=== PATIENT | male | born 1955 | race Caucasian/White ===

== ENCOUNTER 2017-05-20 09:56 | Emergency (ER) | payer OTHER ==
[2017-05-20] MEDS ORDERED: NACL 0.9% 1000 ML 1,000 ML IV ONE (10:28)
[2017-05-20] MEDS ORDERED: ZOFRAN IV ONE ×2 (10:53→13:53)
[2017-05-20] MEDS ORDERED: MORPHINE IV ONE ×2 (10:53→11:59)
[2017-05-20] MEDS ORDERED: TORADOL IV ONE (10:53)
--- NOTE | 2017-05-20 10:56 | Emergency Department Report ---
ED Abdominal Pain HPI - General Chief Complaint: Abdominal Pain Stated Complaint: SEVERE LEFT SIDE PAIN, ABDOMINAL PAIN Time Seen by Provider: 05/20/17 10:48 Source: patient, family Mode of arrival: Wheelchair Limitations: Physical Limitation - History of Present Illness Initial Comments: 62 years old history of COPD coming today with left flank pain started all of a sudden and radiated down to his left groin. Denied any similar symptoms. Associated with nausea but no vomiting, no fever no diarrhea. Denied any urinary symptoms. MD Complaint: abdominal pain, flank pain -: Sudden, This morning Location: L flank Radiation: suprapubic Severity: severe Severity scale (0 -10): 10 Quality: stabbing Consistency: intermittent - Related Data Allergies Allergy/AdvReac Type Severity Reaction Status Date / Time amoxicillin Allergy Unknown Verified 05/20/17 10:21 conch Allergy Unknown Uncoded 05/20/17 10:21 ED Review of Systems ROS: Stated complaint: SEVERE LEFT SIDE PAIN, ABDOMINAL PAIN Other details as noted in HPI Comment: All other systems reviewed and negative Constitutional: denies: chills, fever Respiratory: denies: cough, orthopnea, shortness of breath Cardiovascular: denies: chest pain, palpitations, dyspnea on exertion Gastrointestinal: abdominal pain, nausea. denies: vomiting, diarrhea, constipation, hematemesis, melena, hematochezia Genitourinary: denies: urgency, dysuria, frequency, hematuria, discharge, testicular pain, testicular mass Neurological: denies: headache ED Past Medical Hx - Past Medical History Previous Medical History?: No Additional medical history: Bronchitis - Social History Smoking Status: Current Every Day Smoker ED Physical Exam - General Limitations: Physical Limitation General appearance: alert, in distress (secondary to pain) - Head Head exam: Present: normocephalic - ENT ENT exam: Present: normal exam, normal orophraynx - Neck Neck exam: Present: normal inspection, full ROM. Absent: tenderness, meningismus - Respiratory Respiratory exam: Present: normal lung sounds bilaterally. Absent: respiratory distress, wheezes, rales, rhonchi - Cardiovascular Cardiovascular Exam: Present: regular rate, normal rhythm, normal heart sounds - GI/Abdominal GI/Abdominal exam: Present: soft, tenderness (left lower quadrant). Absent: distended, guarding, rebound, rigid, normal bowel sounds, diminished bowel sounds, mass, bruit, pulsatile mass, hernia - Extremities Exam Extremities exam: Present: normal inspection - Back Exam Back exam: Present: normal inspection, CVA tenderness (L). Absent: tenderness, CVA tenderness (R), muscle spasm, paraspinal tenderness, vertebral tenderness - Neurological Exam Neurological exam: Present: alert, oriented X3, CN II-XII intact - Skin Skin exam: Present: warm, normal color ED Course Vital Signs 05/20/17 05/20/17 05/20/17 10:14 10:59 12:15 Temperature 97.4 F L Pulse Rate 77 101 H Respiratory 20 22 18 Rate Blood Pressure 157/97 Blood Pressure 157/97 171/96 [Left] O2 Sat by Pulse 98 100 Oximetry - Reevaluation(s) Reevaluation #1: 05/20/17 13:29 Patient stated that his pain is much better. Inform him his CT results show a 4 mm stone at ureterovesical junction. I informed the patient that he will need to have a follow-up with his primary care physician for a refill to a urologist patient and his agreed. ED Medical Decision Making - Lab Data Result diagrams: 05/20/17 10:45 05/20/17 10:45 - Radiology Data Radiology results: report reviewed 4 mm ureterovesical junction stone Critical care attestation.: If time is entered above; I have spent that time in minutes in the direct care of this critically ill patient, excluding procedure time. ED Disposition Clinical Impression: Acute flank pain, Ureterolithiasis Disposition: DC-01 TO HOME OR SELFCARE Is pt being admited?: No Condition: Stable Instructions: Kidney Stones (ED), Flank Pain (ED) Referrals: PRIMARY CARE, [Primary Care Provider] - 3-5 Days
--- NOTE | 2017-05-20 10:58 | XRay Report ---
Flat and upright abdomen: History: Abdominal pain. Findings: Minimally distended a few loops of small bowel without wall thickening or fluid levels. Stool in ascending colon and transverse colon. No colonic distention. No radiopaque calculus or abnormal calcification. Impression: Nonspecific findings. Possibility of early incomplete small bowel obstruction cannot be excluded.
[2017-05-20 11:00] LABS: Basophils % (Auto) 0.8 % (0.0-1.8); Eosinophils % (Auto) 0.7 % (0.0-4.3); Hematocrit 41.4 % (35.5-45.6); Hemoglobin 13.4 gm/dl (11.8-15.2); Mean Corpuscular HGB Conc 32 % (32-34); Mean Corpuscular Hemoglobin 27 pg (28-32); Mean Corpuscular Volume 84 fl (84-94); Platelet Count 210 K/mm3 (140-440); Red Blood Count 4.93 M/mm3 (3.65-5.03); Red Cell Distribution Width 15.2 % (13.2-15.2); White Blood Count 9.7 K/mm3 (4.5-11.0)
[2017-05-20 11:18] LABS: Alanine Aminotransferase 23 units/L (7-56); Albumin 4.2 g/dL (3.9-5); Albumin/Globulin Ratio 1.4 %; Alkaline Phosphatase 77 units/L (35-129); Amylase 47 units/L (27-131); Anion Gap 21 mmol/L; BUN/Creatinine Ratio 16.36; Blood Urea Nitrogen 18 mg/dL (9-20); Calcium 9.6 mg/dL (8.4-10.2); Carbon Dioxide 23 mmol/L (22-30); Chloride 101.3 mmol/L (98-107); Glucose 130 mg/dL (75-100); Lipase 39 units/L (13-60); Potassium 4.2 mmol/L (3.6-5.0); Sodium 141 mmol/L (137-145); Total Protein 7.2 g/dL (6.3-8.2)
[2017-05-20 11:19] LABS: Bilirubin,Direct < 0.2 mg/dL (0-0.2); Bilirubin,Indirect 0.5 mg/dL
[2017-05-20 11:41] LABS: Bilirubin,Urine NEG (Negative); Blood,Urine MOD (Negative); Ketones,Urine 80 mg/dL (Negative); Leukocyte Esterase,Urine NEG (Negative); Mucus,Urine FEW /HPF; Nitrite,Urine NEG (Negative)
--- NOTE | 2017-05-20 11:55 | Cat Scan Report ---
CT OF THE ABDOMEN AND PELVIS WITHOUT CONTRAST HISTORY: Left flank pain. TECHNIQUE: Helical CT without contrast. Sagittal and coronal reformatted images. FINDINGS: No comparison. A 4 mm calculus is identified along the intramural portion of the left UVJ. There is mild left hydronephrosis. A 1.2 x 1.0 cm renal stone is identified in the mid to superior left kidney. The right kidney and collecting system are unremarkable. The bladder and prostate gland are within normal limits otherwise. The liver, biliary system, pancreas, spleen, adrenal glands, bowel loops and appendix are within normal limits. Aorta is normal caliber and contains minimal calcifications. No evidence for ascites, free air or adenopathy. Heart size is normal. The visualized lung bases are clear. No suspicious bony lesion or fracture. Mild dextroscoliosis of the thoracolumbar spine is noted. IMPRESSION: 4 mm calculus at the left UVJ, mildly obstructing. 1.2 x 1.0 cm nonobstructing left renal stone.
[2017-05-20 12:15] VITALS: BP 171/96
[2017-05-20] MEDS ORDERED: ZOFRAN ONE (13:47)
== END 2017-05-20 13:36 | disposition home or self-care (01) ==
LOC: ED 09:56
DX: N20.1 Calculus of ureter (principal); R10.9 Unspecified abdominal pain; F17.200 Nicotine dependence, unspecified, uncomplicated; Z88.1 Allergy status to other antibiotic agents; Z88.8 Allergy status to other drugs, medicaments and biological substances
CPT/HCPCS: 36415; 74020; 74176; 80048; 80074; 81001; 82150; 83690; 85025; 96361; 96374; 96375; 96376; 99284; J1885; J2270; J2405; J7030